=== PATIENT | female | born 1995 | race Caucasian/White ===

== ENCOUNTER → 2019-03-12 | Outpatient (CLI) | payer OTHER ==
[~2019-03-12] MED LIST: DIPH0.5S2 IM; PREN-127 PO
== END ==
LOC: LAB 11:14
PROVIDERS: ATTEND Obstetrics & Gynecology
DX: Z34.93 Encounter for supervision of normal pregnancy, unspecified, third trimester (principal)
CPT/HCPCS: 36415; 85027

== ENCOUNTER → 2019-05-02 | Outpatient (CLI) | payer OTHER ==
[~2019-05-02] MED LIST changes: +FLU150 PO
== END ==
LOC: LAB 10:31
PROVIDERS: ATTEND Obstetrics & Gynecology
DX: Z34.93 Encounter for supervision of normal pregnancy, unspecified, third trimester (principal)
CPT/HCPCS: 87081

== ENCOUNTER → 2019-05-06 | Outpatient (CLI) | payer OTHER | LOC: LAB 11:58 | PROVIDERS: ATTEND Obstetrics & Gynecology | DX: O26.893 Other specified pregnancy related conditions, third trimester (principal) | CPT/HCPCS: 84112 ==

== ENCOUNTER → 2019-05-12 | Outpatient (CLI) | payer OTHER ==
--- NOTE | 2019-05-12 10:15 | RADIOLOGY IMAGING REPORT ---
[place] [facility] [place] Brittni Alvarez : 1995 MR: [id number] V: [id number] EXAM DATE: ORDERING PHYSICIAN: ADALBERTO HANSEN TECHNOLOGIST: Location: [facility] [place] Patient: rBittni Alvarez : 1995 Visit/Account:[id number] Date of Sevice: 05/12/2019 EXAMINATION: Ultrasound transabdominal OB > 14 weeks with anatomic evaluation HISTORY: Size less than dates COMPARISON: None. TECHNIQUE: Transabdominal imaging was performed for assessment of the fetus and maternal pelvic structures. T ransvaginal imaging was not performed. FINDINGS: Placenta: Posterior without previa. Uterus: Gravid, otherwise normal Cervix: Closed Maternal Ovaries: Not visualized. Maternal and other adnexa findings: Not evaluated Intrauterine gestations: One. presentation: Cephalic heart rate: Normal and regular at 144 bpm Amniotic fluid index: 12.52 cm Largest amniotic fluid pocket: 4.87 cm Gestational Parameters: BPD: 9.07 cm 36 weeks/ six days, 54% HC: 32.49 cm 36 weeks/ six days, 16% AC: 33.5 to cm 37 weeks/ three days, 69% FL: 7.18 cm 36 weeks/ six days, 37% Average ultrasound age (AUA): 37 weeks/zero days, STEPHANIA 06/02/2019 Estimated gestational age by LMP: 37 weeks/two days, STEPHANIA 05/31/2019 Estimated weight (EFW): 3123 grams +/- 456 grams EFW for LMP: 54 percentile Anatomic Survey: Anatomic survey not performed IMPRESSION: Single viable views in cephalic presentation with an estimated gestational age of 37 wee ks and zero days. The estimated gestational age by LMP is 37 weeks and two days. The estimated weight is 3123 g equivalent to the 54th percentile Report Dictated By: Claudette Garcia MD at 05/12/2019 9:54 AM Report E-Signed By: Claudette Garcia MD at 05/12/2019 10:07 AM WSN:LEWIS
== END ==
LOC: RAD 08:51
PROVIDERS: ATTEND Obstetrics & Gynecology
DX: O26.849 Uterine size-date discrepancy, unspecified trimester (principal)

== ENCOUNTER 2019-05-19 09:05 | Inpatient (IN) | payer OTHER ==
[~2019-05-19] VITALS: Ht 162.6 cm; Wt 71.7 kg
[2019-05-19] MEDS ORDERED: FAMOTIDINE(*) 20MG/50ML PREMIX 50 ML IVPB PRN (09:14)
[2019-05-19] MEDS ORDERED: OXYTOCIN 30 UNIT/NS 500 ML 500 ML IV PRN ×2 (09:14)
[2019-05-19 09:15] VITALS: BP 126/86; Ht 162.6 cm; Wt 71.7 kg
[2019-05-19] MEDS ORDERED: LIDOCAINE 1% LOCAL 300 MG/30ML INJ PRN (09:15)
[2019-05-19] MEDS ORDERED: FLUSH 10 ML SYR IVP PRN (09:15)
[2019-05-19] MEDS ORDERED: TERBUTALINE SULF 1 MG/ML VIAL IVP PRN (09:15)
[2019-05-19] MEDS ORDERED: LIDOCAINE/SOD BICARB 8.4% SYR SC PRN (09:15)
[2019-05-19] MEDS ORDERED: fentaNYL CITR 100 MCG/2 ML AMP IVP PRN (09:15)
[2019-05-19] MEDS ORDERED: METOCLOPRAMIDE 10 MG/2 ML SDV IVP PRN (09:15)
--- NOTE | 2019-05-19 09:21 | History & Physical ---
History of Present Illness Age of Patient: 23 : 1 Para or TPAL: 0 Estimated Gestational Age: 38.2 Chief Complaint Elevated BP History of Present Illness 23 year old who came to office today for routine visit. Her BP was elevated 140/90. Pt was asymptomatic, no CAMACHO, vision changes or abdominal pain. She reported good FM, no LOF or VB. She is having irregular ctx. care has been uncomplicated. Her BP was borderline at her visit one week ago in the office. History Patient's Blood Type: B Positive Rubella Status: Immune Group B Strep Screen: Negative Miscellaneous Screens/Cultures: gc/c negative Allergies: Coded Allergies: amoxicillin (Verified Allergy, Unknown, 02/21/19) Family History: FH: cancer Maternal Grandfather FH: hypertension FATHER Paternal Grandmother FH: myocardial infarction Maternal Grandmother Med Rec Home Meds Reported Medications Vits W-Ca,Fe,Fa(<1MG) ( VITAMINS) 1 Each Tablet, 1 EACH PO DAILY, TAB 02/21/19 Discontinued Scripts Fluconazole (FLUCONAZOLE) 150 Mg Tab, 150 MG PO ONCE, #2 TAB 0 Refills Take one tablet po now and repeat in 3 days Prov:YING ALLEN MD 03/26/19 Review of Systems All Systems Reviewed/Normal: Yes, Except as Noted Exam General Exam General Apperance: Alert/Awake/No Acute Distress Neuro: No Gross deficits Eyes: Normal Extraocular Movement & Vison Respiratory: No Respiratory Distress Abdomen: Soft, Non-Tender, Non-Distended, Gravid - Non-Tender Extremities: No Cyanosis,Clubbing or Edema Integumentary: Skin Intact without Lesions or Rash Psychological: Alert & Oriented X3, Appropriate Mood & Affect Cervical Dialation: 5 Cervical Effacement (%): 100 Cervical Consistency: Soft Cervical Position: Anterior Station: 0 Presentation: Vertex Uterine Contraction Strength: Mild Fetus Feeling Movement?: Yes Heart Tones: 140 Assessment and Plan Problems: (1) Elevated blood pressure affecting in third trimester, antepartum Status: Acute Assessment & Plan: Suspect gestational hypertension, labs pending. Will proceed with IOL since pt has advanced cervical dilation as well. Risks, benefits and alternatives reviewed with pt who agrees to proceed. ADALBERTO HANSEN DO May 19, 2019 09:21
[2019-05-19 10:05] LABS: PLATELET COUNT, AUTOMATED 264 K/uL (150-450)
[2019-05-19] MEDS: LR(*) 1000 ML BAG 1,000 ML IV SCH ×3 (11:05→14:31)
--- NOTE | 2019-05-19 13:04 | Labor Progress Note ---
Labor Subjective Progress Notes Subjective Pt having pain with ctx, but comfortable in between contractions. Pt rating pain with ctx a 7. Feeling Movement?: Yes Vaginal Discharge/Fluid: Clear Fluid (AROM at last exam around 11 am without difficulty and clear fluid ) Labor Pain: Moderate Neurological: No Headache Labor Objective Vaginal Discharge/Fluid?: Clear Fluid Cervical Dialation: 6 Cervical Effacement (%): 100 Cervical Consistency: Soft Cervical Position: Anterior Station: 0 Presentation: Vertex Uterine Contraction Strength: Strong UC Resting Tone: Soft Fetus Heart Tones: 135 Heart Tone Variabilty: Moderate FHT Accelerations: 15X15 FHT Decelerations: Early FHT Category: I General Exam General Appearance: Alert/Awake/No Acute Distress Abdomen: Soft, Non-Tender, Non-Distended, Gravid - Non-Tender Extremities: No Cyanosis,Clubbing or Edema Integumentary: Skin Intact without Lesions or Rash Psychological: Alert & Oriented X3, Appropriate Mood & Affect Other Result Diagram: 05/19/19 0951 05/19/19 0951 Assessment and Plan 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 PT w/o symptoms of pre-e ADALBERTO HANSEN DO May 19, 2019 13:04
[2019-05-19] MEDS ORDERED: LIDO/EPI 2% MPF 1:200,000 20ML EPI PRN (13:05)
[2019-05-19] MEDS ORDERED: LIDOCAINE/PF 2% 200MG/10ML AMP 200 MG/10 ML AMPUL EPI PRN (13:05)
[2019-05-19] MEDS ORDERED: fentaNYL CITR 100 MCG/2 ML AMP IT PRN (13:05)
[2019-05-19] MEDS ORDERED: BUPIVACAINE 0.25% MPF INJ EPI PRN (13:05)
[2019-05-19] MEDS ORDERED: FENTANYL/ROPIVACAINE 100 ML BAG EPI PRN (13:05)
[2019-05-19] MEDS ORDERED: BUPIVACAINE 0.5% INJ 30ML VIAL EPI PRN (13:05)
[2019-05-19] MEDS ORDERED: ePHEDrine 25 MG/5 ML DISP.SYR IVP ONE (13:24)
--- NOTE | 2019-05-19 14:33 | Anesthesia OB Pre-Anes Eval ---
History of Present Illness Anesthesia Start Date: May 19, 2019 Anesthesia Start Time: 13:32 OB Anesthesia Diagnosis: gestational hypertension, induction - medical Current Complication: gestational hypertention EDC: May 31, 2019 : 1 Para: 0 Vital Signs: BP: 141/87, HR: 85, O2sat: 96% RA, RR: 18 Pain Ratin (7) Heart Tones: Normal Result Diagram: 05/19/19 0951 05/19/19 0951 Height (Inches): 64.00 Weight (Pounds): 158 Past Medical History Medical History: no pertinent history Surgical History: noncontributory, other (Eye surgery as a baby) Attended Childbirth Classes?: Yes Hx Anesthesia Reactions: No Hx Family Anesthesia Reaction: No Current Medications: pitocin Home Meds Reported Medications Vits W-Ca,Fe,Fa(<1MG) ( VITAMINS) 1 Each Tablet, 1 EACH PO DAILY, TAB 02/21/19 Discontinued Scripts Fluconazole (FLUCONAZOLE) 150 Mg Tab, 150 MG PO ONCE, #2 TAB 0 Refills Take one tablet po now and repeat in 3 days Prov:YING ALLEN MD 03/26/19 Allergies: Coded Allergies: amoxicillin (Verified Allergy, Unknown, 02/21/19) Anesthesia OB ROS Airway Class: ll GI ROS: NPO (clears at 0800. NPO since) Last Solids Date: May 18, 2019 ASA Classification: 2 Assessment and Plan Anesthesia Plan: LEB Assessment: Lungs: CTA bilaterallly Heart: RRR, no MRG, no edema, no syncope, no CP NAKUL BERGER SCRAP METAL PROCESSING WORKER May 19, 2019 14:33
--- NOTE | 2019-05-19 14:42 | Procedure Note ---
Anesthetic Placement Note Anesthesia Plan: LEB Permit for Anesthesia Signed: Yes Anesthesia Technique: Patient Sitting Anesthesia Prep: Chlorhexidine (Used chlorhexidine and betadyne becuase chlorhexidine has no dye) Interspace: L 3-4 Local Anesthetic: 1% Lidocaine, 25 Gauge Needle Amount Local - cc's: 2 Anesthesia Needle: 17g Touhy/Schliff Anesthesia Attempts: 1 Loss of Resistance: Normal Saline Depth of JOANN (cm): 6.5 Catheter Insertion (cm): 5.5 (secured 12 cm at skin) Catheter Type: Mcgregor - Spring Wound Epidural Dressing: Tegaderm, Tape, Other (Benzoin and mefix) Anesthesia Tray: Lot Number ([id number]), Expiration Date (06/07/2020), Reference Number ([id number]) Comment: clamp style catheter connector taped shut and taped to catheter. Anesthesia Medications: Epidural Test Dose: 1.5 Lido/Epi (1:200,000), Dose - mL (3), Time (1349), Negative Epidural Loading Dose: 0.2% Ropivicaine, With Fentanyl 2mcg/ml (6 mL at time of starting pump), Other (7 mL 0.5% lidocaine at 1352.) Epidural Infusion: 0.2% Ropivicaine, With Fentanyl 2mcg/ml, Start Time: (1403) Epidural Pump Setting: Bolus Dose - mL (6), Lockout - Minutes (15), Maintenance Rate - mL/hr (5), Maximum per Hour - mL (23) Complications: None Comment: Tolerated well. Good cooperation and positioning by patient. NAKUL BERGER CRNA May 19, 2019 14:42
--- NOTE | 2019-05-19 17:02 | Anesthesia Progress Note ---
Progress/Maintenance Anesthesia Note Date: May 19, 2019 Anesthesia Note Time: 15:00 Pain Intensity: 0 Pump: On Pump Rate (ML/HR): 5 Sensory Level: T7-8 Motor Level: Bending Knees-Bilateral Dilatation: 9 Position: Left NAKUL BERGER CRNA May 19, 2019 17:02
[2019-05-19] MEDS ORDERED: BENZOCAINE 20% 60 ML BTL TP PRN (17:15)
[2019-05-19] MEDS ORDERED: MAGNESIUM HYDROXIDE* 30ML UDCP PO PRN (17:15)
[2019-05-19] MEDS ORDERED: ACETAMINOPHEN 325 MG TAB PO PRN (17:15)
[2019-05-19] MEDS ORDERED: HYDROCORTISONE 2.5% CR 30GM TB PR PRN (17:15)
[2019-05-19] MEDS ORDERED: INFLUENZA VIRUS VAC 0.5ML SYR IM ONLY ONE (17:15)
[2019-05-19] MEDS ORDERED: LANOLIN OINT 7 GM TUBE TP PRN (17:15)
--- NOTE | 2019-05-19 17:19 | OB Delivery Note ---
Delivery Note Vaginal Delivery Type: Spont. Vaginal Delivery Delivery Date: May 19, 2019 Estimated Gestational Age(wks): 38.2 Delivery Anesthesia: Epidural Infant Sex: Male Apgars: 1 Minute (8), 5 Minute (9) Repair Needed: Episiotomy-Midline (with extension to a third degree ), 3rd Degree Delivery Complications: Shoulder Dystocia (Anterior shoulder reduced using McRobert's positioning, suprapubic pressure and Early's manuever. deliv ered SANJUANA.) Notes: Pt pushed to deliver a viable female . Shoulder dystocia was anticipated as turtle sign was noticed as head was . Midline episiotomy made to facilitate head delivery. After head was delivered hips were flexed in McRobert's positioning and suprapubic pressure was applied. Early's manuever was also utilized. The anterior shoulder was reduced after approximately 30 seconds. The body then delivered with gentle traction. The umbilical cord was wrapped around the foot and was reduced after delivery. was dried and stimulated. Nose and mouth were bulb suctioned. 3VC was clamped and cut after 30 second delay and placed on mom's chest. Perineal inspection revealed episiotomy extension to third degree. Rectal exam performed and rectal cavity intact. Anal sphincter reapproximated in figure of eight fashion using 2.0 vicryl. Remainder of laceration repaired in usual fashion using 3.0 rapide. Placenta delivered spontaneously and in tact. EBL 200 cc. I performed entire delivery and repair unassisted. Architectural Design Professor in Attendence: ADALBERTO Hinds DO May 19, 2019 17:19
--- NOTE | 2019-05-19 17:26 | Anesthesia Progress Note ---
Progress/Maintenance Anesthesia Note Date: May 19, 2019 Assessment and Plan Assessment: Epidural worked very well per patient report. Delivery at 16:40. Epidural infusion continued post delivery for analgesia during laceration repair and then stopped at 17:05 Anesthesia Stop Day: May 19, 2019 Anesthesia Stop Time: 17:05 Epidural Catheter Removal: Removed Catheter Intact, Yes, Removed by: (RN (see RN notes)) Removal Date: May 19, 2019 NAKUL BERGER CRNA May 19, 2019 17:26
[2019-05-19] MEDS ORDERED: IBUPROFEN 800 MG TAB PO SCH (18:00)
[2019-05-19 19:15] VITALS: BP 132/68
[2019-05-19] MEDS: GLYCERIN/WITCH HAZEL LEAF 1 PK TP PRN (19:29)
[2019-05-19] MEDS: DOCUSATE CALCIUM 240 MG CAP PO SCH (21:06)
[2019-05-19 23:05] VITALS: BP 98/52
[2019-05-20 03:00] VITALS: BP 103/78
[2019-05-20] MEDS: IBUPROFEN 800 MG TAB PO SCH ×3 (03:13→19:37)
[2019-05-20] MEDS: DOCUSATE CALCIUM 240 MG CAP PO SCH ×2 (08:47→21:00)
--- NOTE | 2019-05-20 09:30 | OB/GYN Progress Note ---
OB Subjective Progress Notes Subjective Doing good this morning. Some discomfort around her bottom. with minimal difficulty, baby not ready to eat at this time. Lochia appropriate. Tolerating regular diet. Ambulatory in room only. Pain controlled with po pain medication. GI: NEG Nausea, NEG Vomiting, NEG Flatus, NEG Bowel Movement : Voiding Well, Vaginal Bleeding, Moderate Pain: Mild, Tolerating PO Pain Meds Neurological: No Headache, No Other Eyes: No Visual Disturbances OB Objective Physical Exam Vital Signs Date Time Temp Pulse Resp B/P (MAP) Pulse Ox O2 Delivery O2 Flow Rate FiO2 05/20/19 03:00 98.0 74 16 103/78 (86) 94 Room Air Intake and Output 05/20/19 07:03 Intake Total 2300 ml Output Total 1175 ml Balance 1125 ml Intake Oral 300 ml IV Total 2000 ml Output Urine Total 1175 ml # Voids 4 General Appearance: Alert/Awake/No Acute Distress Neurological: No Gross deficits Eyes: Normal Extraocular Movement & Vison Cardiovascular: Normal Rhythm & Peripheral Pulses Respiratory: No Respiratory Distress Abdomen: Soft, Non-Tender, Non-Distended, Fundus Firm Extremities: No Cyanosis,Clubbing or Edema Integumentary: Skin Intact without Lesions or Rash Psychological: Alert & Oriented X3, Appropriate Mood & Affect Result Diagram: 05/20/19 0612 05/19/19 0951 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 Plan to have patient stay again tonight unless baby begins to eat better. JACKLYN LAYTON DO May 20, 2019 09:30
[2019-05-20] MEDS: POLYETHYLENE GLYCOL 17 GM PKT PO SCH (10:30)
[2019-05-20 12:55] VITALS: BP 108/61
[2019-05-20 15:16] VITALS: BP 105/63
[2019-05-20] MEDS ORDERED: MEASLES,MUMP,RUBELLA VAC 0.5ML SUBQ ONE (17:15)
[2019-05-20] MEDS ORDERED: DIPHTH/TETANUS/ACEL. PERTUSSIS IM ONLY ONE (17:15)
[2019-05-20 19:50] VITALS: BP 119/79
[2019-05-21 01:30] VITALS: BP 102/59
[2019-05-21] MEDS: IBUPROFEN 800 MG TAB PO SCH ×2 (03:59→11:02)
[2019-05-21 08:30] VITALS: BP 117/72
[2019-05-21] MEDS: DOCUSATE CALCIUM 240 MG CAP PO SCH (08:47)
[2019-05-21] MEDS: POLYETHYLENE GLYCOL 17 GM PKT PO SCH (08:47)
[2019-05-21] MEDS: GLYCERIN/WITCH HAZEL LEAF 1 PK TP PRN (08:47)
--- NOTE | 2019-05-21 09:35 | Anesthesia Post Eval Note ---
Anesthesia Post Eval Note Normal. See RN charting Pt able to participate in Eval: Yes Cardiovascular Status: Satisfactory Respiratory Status: Satisfactory Pain Managment: Satisfactory PO Nausea/Vomiting: Satisfactory Temperature Management: Satisfactory Mental Status: Satisfactory, Alert, Oriented X3 Post-Op Hydration Status: Satisfactory, Tolerating PO Well, Voiding w/o Difficulty Anesthesia Type: LEB Anesthesia Tolerance: Neuro exam normal. no evidence of complications related to epidural NAKUL BERGER MERCHANT MILL UTILITY WORKER May 21, 2019 09:35
[2019-05-21] MEDS ORDERED: DOCU240C67 PO (09:51)
[2019-05-21] MEDS ORDERED: POLY17PO11 PO (09:51)
[2019-05-21] MEDS ORDERED: IBUP800T37 PO (09:51)
--- NOTE | 2019-05-21 09:52 | OB/GYN Discharge Summary ---
Discharge Summary Reason for Hosp/Final Diag: (1) Elevated blood pressure affecting in third trimester, antepartum Status: Resolved Lates Vital Signs Vital Signs Date Time Temp Pulse Resp B/P (MAP) Pulse Ox O2 Delivery O2 Flow Rate FiO2 05/21/19 08:30 98.0 87 14 117/72 (87) Room Air 05/21/19 01:30 95 Weight (Pounds): 158 Result Diagram: 05/20/19 0612 05/19/19 0951 Condition: Improved Discharge: Home, Self Retirement Meds Active Scripts Polyethylene Glycol 3350 (POLYETHYLENE GLYCOL 3350) 17 Gm Powd.pack, 17 GM PO QDAY for 7 Days, #7 PACKET 1 Refill Prov:ADALBERTO ISSA DO 05/21/19 Ibuprofen (IBUPROFEN) 800 Mg Tablet, 800 MG PO Q8H@0300,1100,1900 for 30 Days, #90 TAB 3 Refills Prov:ADALBERTO ISSA DO 05/21/19 Docusate Calcium (DOCUSATE CALCIUM) 240 Mg Capsule, 240 MG PO BID for 30 Days, #60 CAPSULE 3 Refills Prov:ADALBERTO ISSA DO 05/21/19 Reported Medications Vits W-Ca,Fe,Fa(<1MG) ( VITAMINS) 1 Each Tablet, 1 EACH PO DAILY, TAB 02/21/19 Follow up with: [facility] [phone] ([address] Issa ) Discharge Diet: As Tolerates, Resume Prior Admit Diet Discharge Activity: As Tolerates, No Heavy Lifting x 6 wks, Pelvic Rest ADALBERTO ISSA DO May 21, 2019 09:52
== END 2019-05-21 12:20 | disposition home or self-care (01) | DRG 768 ==
LOC: OB 09:05
PROVIDERS: ADMIT Student in an Organized Health Care Education/Training Program; ATTEND Student in an Organized Health Care Education/Training Program
PROC: 10E0XZZ Delivery of Products of Conception, External Approach (ICD-10-PCS; principal; 2019-05-19)
PROC: 0DQR0ZZ Repair Anal Sphincter, Open Approach (ICD-10-PCS; 2019-05-19)
PROC: 0W8NXZZ Division of Female Perineum, External Approach (ICD-10-PCS; 2019-05-19)
PROC: 10907ZC Drainage of Amniotic Fluid, Therapeutic from Products of Conception, Via Natural or Artificial Opening (ICD-10-PCS; 2019-05-19)
DX: O13.4 Gestational [pregnancy-induced] hypertension without significant proteinuria, complicating childbirth (principal); Z37.0 Single live birth; O70.20 Third degree perineal laceration during delivery, unspecified; O66.0 Obstructed labor due to shoulder dystocia; Z3A.38 38 weeks gestation of pregnancy; O69.81X0 Labor and delivery complicated by cord around neck, without compression, not applicable or unspecified
CPT/HCPCS: 36415; 82040; 82247; 82310; 82374; 82435; 82565; 82947; 84075; 84132; 84155; 84295; 84450; 84460; 84520; 85025; 85027; 86850; 86900; 86901; J2590; J7120